=== PATIENT | male | born 2000 | race Caucasian/White ===

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

== ENCOUNTER 2021-10-24 12:40 | Emergency (ER) | payer OTHER ==
[2021-10-24 13:07] LABS: BASOPHIL 0.1 % (0-2); EOSINOPHIL 0.4 % (0-5); HCT 41.2 % (42.0-52.0); HGB 14.4 g/dl (13.2-18.0); LYMPHOCYTE 4.2 % (15-48); MCH 30.8 pg (25.0-31.0); MCV 88.2 fL (78.0-100.0); MPV 11.3 fL (6.0-9.5); NEUTROPHIL 83.9 % (41-80); NRBC 0; PLT 183 K/uL (150-400); RBC 4.67 M/uL (4.70-6.00); RDW 12.1 % (11.5-14.0); WBC 6.7 K/uL (4.0-10.5)
[2021-10-24 13:52] LABS: BUN/CREAT RATIO (CALC) 19.3 RATIO; CREATININE 0.83 mg/dL (0.67-1.17); POTASSIUM 3.4 mmol/L (3.5-5.1)
[2021-10-24 14:03] LABS: INFLUENZA A NAA NEGATIVE (NEGATIVE)
[2021-10-24 14:08] LABS: CORONAVIRUS 2019 SARS-COV-2 POSITIVE (NEGATIVE)
== END 2021-10-24 15:20 | disposition home or self-care (01) ==
LOC: FER 12:40
PROVIDERS: Nurse Practitioner Family
DX: U07.1 COVID-19 (principal); Z28.310 Unvaccinated for COVID-19
CPT/HCPCS: 36415; 71045; 80048; 85025; 93005; J1100; J1200; J1885; J2405; J7030; U0002